=== PATIENT | female | born 1975 | race Caucasian/White ===

== ENCOUNTER 2017-04-28 19:03 | Emergency (ER) | payer MEDICAID ==
[~2017-04-28] VITALS: Ht 157.5 cm; Wt 74.5 kg
[~2017-04-28 19:03] MED LIST: OMEP20CA9 PO; ONDA4TAB35 PO; RANI150T9 PO
[2017-04-28 19:45] VITALS: Ht 157.5 cm; Wt 74.5 kg
[2017-04-28] MEDS ORDERED: TRIAMCINOLONE ACET 40 MG/ML INJ INJ STA (21:54)
[2017-04-28] MEDS ORDERED: IBUPROFEN 600 MG TAB PO ONE (22:00)
[2017-04-29] MEDS ORDERED: IBUP-1542 PO (00:05)
[2017-04-29] MEDS ORDERED: TRAM-40 PO (00:05)
--- NOTE | 2017-04-29 00:08 | ERD ---
ER Documentation Chief Complaint Date/Time DATE: 04/29/17 TIME: 00:06 Chief Complaint L shoulder pain x 3 months HPI This 42-year-old female presents with a 3 month history of left shoulder pain. She denies any history of injury or inciting events patient has fevers,. She has no deficits. She denies additional complaints other than her left shoulder. ROS All systems reviewed and are negative except as per history of present illness. Medications Home Meds Active Scripts Tramadol Hcl* (Ultram*) 50 Mg Tablet, 50 MG PO Q6H Y for PAIN, #20 TAB Prov:JONATHAN DAMON MD 04/29/17 Ibuprofen* (Motrin*) 600 Mg Tab, 600 MG PO Q6, #20 TAB Prov:JONATHAN DAMON MD 04/29/17 Ondansetron Hcl* (Zofran* ODT) 4 mg -ODT Tab.disper, 4 MG PO Q6 Y for NAUSEA AND /OR VOMITING, #10 TAB Prov:GABBI CHENEY PA-C 11/01/15 Ranitidine Hcl* (Zantac*) 150 Mg Tablet, 150 MG PO BID Y for PAIN, #30 TAB Prov:GABBI CHENEY PA-C 11/01/15 Omeprazole* (Prilosec*) 20 Mg Capsule.dr, 20 MG PO BID, #60 CAP Prov:GABBI CHENEY PA-C 11/01/15 Allergies Allergies: Coded Allergies: No Known Allergy (Unverified , 04/28/17) PMhx/Soc Medical and Surgical Hx: pt denies Medical Hx, pt denies Surgical Hx History of Surgery: No Anesthesia Reaction: No Hx Neurological Disorder: No Hx Respiratory Disorders: No Hx Cardiac Disorders: No Hx Psychiatric Problems: No Hx Miscellaneous Medical Probl: No Hx Alcohol Use: No Hx Substance Use: No Hx Tobacco Use: No Physical Exam Vitals Vital Signs Date Time Temp Pulse Resp B/P Pulse Ox O2 Delivery O2 Flow Rate FiO2 04/28/17 19:45 98.1 95 18 111/56 98 Physical Exam Const: [], [id number]. Head: Atraumatic Eyes: Normal Conjunctiva ENT: Normal External Ears, Nose and Mouth. Neck: Full range of motion..~ No meningismus. Resp: Clear to auscultation bilaterally Cardio: Regular rate and rhythm, no murmurs Abd: Soft, non tender, non distended. Normal bowel sounds Skin: No petechiae or rashes Back: No midline or flank tenderness Ext: No cyanosis, or edema or tenderness in left shoulder capsule with a positive impingement signs. There is no deficits appreciated. There is no ischemia, warmth or erythema. Neur: Awake and alert Psych: Normal Mood and Affect Results 24 hrs Current Medications Medications (Trade) Dose Ordered Sig/Noa Route PRN Reason Start Time Stop Time Status Last Admin Dose Admin Ibuprofen (Motrin) 600 mg ONCE ONCE PO 04/28/17 22:00 04/28/17 22:01 DC 04/28/17 22:48 Triamcinolone Acetonide (Kenalog-40) 40 mg ONCE STAT INJ 04/28/17 21:54 04/28/17 21:56 DC Procedures/MDM X-ray left shoulder 3V Interpreted by me: Bones: No fracture Joints: No dislocation Foreign body: None. Impression-normal left shoulder x-ray Patient consented to left shoulder steroid injection for appears to be rotator cuff tendinitis. Patient was advised of risks and benefits including atrophy tendon rupture, infection wishes to proceed. Via sterile technique 20 mg Kenalog, 2 cc Marcaine and 3 cc lidocaine were injected in the left shoulder joint. Tolerated procedure well. Patient was discharged home with prescription ibuprofen and tramadol and instructions for ice and range of motion to prevent stiffness and primary care follow-up and return precautions. Departure Diagnosis: Primary Impression: Shoulder tendinitis Laterality: left Qualified Code: M75.82 - Tendinitis of left shoulder Condition: Stable Patient Instructions: Shoulder Sprain , Tendonitis Additional Instructions: X RAY NORMAL. YANICK FELDMAN. Cheque otro vez con currie doctor primario en el proximo corrales or regresa para mas o nueva simptomas. JONATHAN DAMON MD Apr 29, 2017 00:08
[2017-04-29 00:12] VITALS: BP 124/62; PULSE 75; RESP 18
--- NOTE | 2017-04-29 00:38 | RADRPT ---
PROCEDURE: XR left shoulder. CLINICAL INDICATION: Pain . TECHNIQUE: AP, Internal and external rotation views of the left shoulder were performed. COMPARISON: None. FINDINGS: No fracture or dislocation. The humeral head articulates normally with the glenoid. The acromioclavicular joint is unremarkable . Thoracic structures are unremarkable. No soft tissue or other osseous abnormality.. IMPRESSION: 1. No fracture, dislocation, or soft tissue abnormality. RPTAT:AAJJ Physician Jasen Date Time Electronically viewed and signed by Physician Jasen on 04/29/2017 00:38 SAY/
--- NOTE | 2017-04-29 07:00 | RADRPT ---
PROCEDURE: XR left shoulder. CLINICAL INDICATION: PAIN TECHNIQUE: 3 views of the left shoulder were performed. COMPARISON: None. FINDINGS: No fracture or dislocation is seen. No lytic or blastic bony lesion is seen. No significant degene rative change. No definite soft tissue abnormality. IMPRESSION: No definite acute fracture or dislocation. RPTAT: HLBE Donna Manuel Physician Date Time Electronically viewed and signed by Donna Manuel Physician on 04/29/2017 07:00 STEFAN/
== END 2017-04-29 00:20 | disposition home or self-care (01) ==
LOC: FTE 19:03
DX: M75.82 Other shoulder lesions, left shoulder (principal)
CPT/HCPCS: 73030; Z7502; Z7610

== ENCOUNTER 2017-09-03 22:29 | Inpatient (IN) | END 2017-09-05 16:12 | disposition home or self-care (01) | DRG 390 ==

== ENCOUNTER 2017-09-29 09:30 | Emergency (ER) | END 2017-09-29 14:04 | disposition home or self-care (01) ==

== ENCOUNTER 2017-09-29 19:46 | Emergency (ER) | END 2017-09-30 02:10 | disposition home or self-care (01) ==

== ENCOUNTER 2018-03-08 08:31 | Emergency (ER) | END 2018-03-08 10:35 | disposition home or self-care (01) ==

== ENCOUNTER 2018-09-15 12:16 | Emergency (ER) | payer MEDICAID ==
[~2018-09-15] VITALS: Wt 73.5 kg
[~2018-09-15 12:16] MED LIST changes: +ACET325T33 PO; +ACET500C5 PO; +CIPR500T4 PO; +DIC20 PO; +FAMO-96 PO; +HYDR-4011 PO; +IBUP-1542 PO; +MED4DP PO; +METR500T PO; +NAPR-985 PO; -OMEP20CA9 PO; -ONDA4TAB35 PO; -RANI150T9 PO
[2018-09-15] MEDS ORDERED: ACETAMINOPHEN 500 MG TAB PO STA (15:36)
[2018-09-15] MEDS ORDERED: IBUPROFEN 800 MG TAB PO ONE (16:30)
--- NOTE | 2018-09-15 18:11 | ERD ---
ER Documentation Chief Complaint Chief Complaint L lower back pain, HOOKS x1d; no relief w tylenol. no trauma/ fall HPI 43-year-old female presents to the ED complaining of left lumbar back pain for 1 day. The pain is described as dull, constant, 7/10. She denies any trauma, no distal weakness, numbness or tingling. The patient also reports mild headache, frontal, but no nausea, no blurred vision. No medications taken at this time for pain. She denies fevers, no chills, no rashes. ROS All systems reviewed and are negative except as per history of present illness. Medications Home Meds Active Scripts Hydrocodone/Acetaminophen ([place] 5-325 Tablet) 1 Each Tablet, 1 TAB PO Q6H PRN for PAIN, #7 TAB Prov:SHORTY VILLEGAS PA-C 03/08/18 Naproxen* (Naprosyn*) 500 Mg Tablet, 500 MG PO BID PRN for PAIN AND/OR INFLAMMATION, #30 TAB Prov:SHORTY VILLEGAS PA-C 03/08/18 Methylprednisolone* (Medrol* DOSE PACK) 4 Mg/Dose-Pack Tab.ds.pk, 4 MG PO . DIRECTED, #1 PACKET Prov:SHORTY VILLEGAS PA-C 03/08/18 Dicyclomine HCl (Dicyclomine HCl) 20 Mg Tablet, 1 TAB PO Q6, #20 Prov:FILOMENA BUTTERFIELD NP 09/30/17 Hydrocodone/Acetaminophen ([place] 5-325 Tablet) 1 Each Tablet, 1 TAB PO Q6H PRN f or SEVERE PAIN LEVEL 7-10, #20 TAB Prov:FILOMENA BUTTERFIELD NP 09/30/17 Metronidazole* (Flagyl*) 500 Mg Tablet, 500 MG PO TID for 10 Days, TAB Prov:FILOMENA BUTTERFIELD NP 09/30/17 Ciprofloxacin Hcl* (Ciprofloxacin Hcl*) 500 Mg Tablet, 500 MG PO BID for 10 Days, TAB Prov:FILOMENA BUTTERFIELD NP 09/30/17 Acetaminophen* (Tylophen*) 500 Mg Capsule, 1 CAP PO Q6H PRN for PAIN AND OR ELEVATED TEMP, #20 CAP Prov:FILOMENA BUTTERFIELD NP 09/30/17 Ibuprofen* (Motrin*) 600 Mg Tab, 600 MG PO Q6H PRN for PAIN AND OR ELEVATED TEMP, #30 TAB Prov:FILOMENA BUTTERFIELD ZI Pabon NP 09/30/17 Famotidine* (Pepcid*) 20 Mg Tablet, 20 MG PO BID for 4 Days, #30 TAB Prov:SHORTY VILLEGAS PA-C 09/29/17 Acetaminophen* (Tylenol*) 325 Mg Tablet, 2 TAB PO Q6 PRN for PAIN AND OR ELEVATED TEMP, #20 TAB Prov:SHORTY VILLEGAS PA-C 09/29/17 Allergies Allergies: Coded Allergies: No Known Allergy (Unverified , 04/28/17) PMhx/Soc Medical and Surgical Hx: pt denies Medical Hx, pt denies Surgical Hx History of Surgery: No Anesthesia Reaction: No Hx Neurological Disorder: No Hx Respiratory Disorders: No Hx Cardiac Disorders: No Hx Psychiatric Problems: No Hx Miscellaneous Medical Probl: No Hx Alcohol Use: No Hx Substance Use: No Hx Tobacco Use: No Smoking Status: Never smoker FmHx Family History: No diabetes, No coronary disease Physical Exam Vitals Physical Exam Patient is in no acute distress, vital signs stable. Alert and fully oriented. EYES: PERRLA, EOMI, Sclera and conjunctiva appear normal. EARS: Canals clear, tympanic membranes WNL THROAT: Normal oropharynx. NECK: Supple, No lymphadenopathy. Full ROM without pain or tenderness. HEART: RRR, no rubs, murmurs, clicks or gallops. LUNGS: Clear to auscultation. ABDOMEN: Soft, non-tender without masses or hepatosplenomegaly. EXTREMITIES: No edema bilaterally. BACK: Normal inspection, no deformity, decreased range of motion for lateral rotation and flexion. No vertebral tenderness, bilateral lower muscle spasm. NEURO: Cranial nerves grossly intact, no motor or sensory deficit Results 24 hrs Laboratory Tests Test 09/15/18 15:46 09/15/18 15:53 Urine Color YELLOW Urine Clarity CLEAR Urine pH 5.0 Urine Specific [place] 1.011 Urine Ketones NEGATIVE mg/dL Urine Nitrite NEGATIVE mg/dL Urine Bilirubin NEGATIVE mg/dL Urine Urobilinogen NEGATIVE mg/dL Urine Leukocyte Esterase NEGATIVE Mario/ul Urine Hemoglobin NEGATIVE mg/dL Urine Glucose NEGATIVE mg/dL Urine Total Protein NEGATIVE mg/dl POC Beta HCG, Qualitative NEGATIVE Current Medications Medications Dose Sig/Noa Start Time Status Last (Trade) Ordered Route PRN Stop Time Admin Dose Reason Admin 1,000 mg ONCE STAT 09/15/18 DC 09/15/18 Acetaminophen PO 15:36 15:46 (Tylenol 09/15/18 15:37 Tab) Ibuprofen 800 mg ONCE ONCE 09/15/18 DC 09/15/18 (Motrin) PO 16:30 16:08 09/15/18 16:31 Procedures/MDM Differential diagnosis include but not limited to: lumbar sprain/strain, sciati ca, herniated disk, UTI less likely pyelo, kidney stone. Neurovascular exam grossly intact. no clinical findings suggestive of acute infectious process, no acute deformity, no edema, no rashes. Physical examination and clinical presentation consistent most likely with acute musculoskeletal back pain. During the ED course the patient received treatment with ibuprofen and Tylenol presenting overall improvement of the symptoms. Results and clinical impression discussed with the patient who agrees with management. The patient is stable to be treated outpatient and will be discharged home with recommendations and close monitoring The patient was instructed to follow up with the primary care provider in the next 48h. If symptoms persist, worsen or new symptoms develop, then patient should return to the ED immediately. Instructions explained and given to patient with acknowledgment and demonstrated understanding. Disclaimer: Inadvertent spelling and grammatical errors are likely due to EHR/dictation software use and do not reflect on the overall quality of patient care. Also, please note that the electronic time recorded on this note does not necessarily reflect the actual time of the patient encounter. Departure Diagnosis: Primary Impression: Back pain Condition: Stable Patient Instructions: Back Pain (Acute Or Chronic) Additional Instructions: Muchas frankie por [facility] para currie servicio. Esperamos que en currie visita a la isaiah de emergencia currie problema medico haya sido solucionado y que se sienta mucho mejor. Para estar seguros que currie mejoria sigue en proceso, le pedimos el favor de hacer clyde heidi de seguimiento medico con currie doctor primario en los proximos 2-4 corrales. Lleve con usted estos documentos y las medicinas recetadas. Si vick sintomas empeoran, NO SE ESPERE, por favor regrese a isaiah de emergencia INMEDIATAMENTE. En cherrie que usted no tenga un mdico de atencin primaria: Llame al mdico o clnica comunitaria de referencia que aparece abajo neal las horas de consultorio para hacer clyde heidi para que le vean. CLINICAS: [facility] [phone] [facility] [phone] [facility] [phone] [facility] [phone] [facility] [facility] [phone] [facility] [phone] MARCELINA POOLE PA-C Sep 15, 2018 18:11 SHARON COVARRUBIAS MD Sep 24, 2018 15:01
[2018-09-15 18:41] VITALS: BP 100/59; PULSE 75; RESP 18
== END 2018-09-15 18:42 | disposition home or self-care (01) ==
LOC: FTE 12:16
DX: M54.5 Low back pain (principal)
CPT/HCPCS: 74176; 81003; 81025; Z7502; Z7610

== ENCOUNTER 2018-10-03 12:42 | Emergency (ER) | payer MEDICAID ==
[~2018-10-03] VITALS: Ht 152.4 cm; Wt 73.8 kg
[2018-10-03 12:52] VITALS: BP 114/61; PULSE 89; RESP 18; Ht 152.4 cm; Wt 73.8 kg
[2018-10-03] MEDS ORDERED: morphine 4 MG/ML VIAL IV STA (14:12)
[2018-10-03] MEDS ORDERED: SOD CHLORIDE 0.9% 1,000 ML IV STA (14:12)
[2018-10-03] MEDS ORDERED: ONDANSETRON 4 MG INJ IV STA (14:12)
[2018-10-03] MEDS ORDERED: IBUP800T48 PO (16:37)
[2018-10-03] MEDS ORDERED: HYDR-4011 PO (16:37)
[2018-10-03] MEDS ORDERED: NITR-58 PO (16:38)
--- NOTE | 2018-10-03 16:41 | ERD ---
ER Documentation Chief Complaint Chief Complaint VAGINAL BLEEDING X 5 DAYS HPI 43-year-old female is here with pelvic pain or vaginal bleeding for the past 5 days but the pain got worse today. Denies possibility of . No vo miting. No dysuria hematuria frequency. ROS All systems reviewed and are negative except as per history of present illness. Medications Home Meds Active Scripts Nitrofurantoin Monohyd Macrocr* (Macrobid*) 100 Mg Capsr, 100 MG PO BID for 7 Days, CAP Prov:KERRIE BAE PA-C 10/03/18 Hydrocodone/Acetaminophen ([place] 5-325 Tablet) 1 Each Tablet, 1 TAB PO Q6H PRN for PAIN, #15 TAB Prov:KERRIE BAE PA-C 10/03/18 Ibuprofen* (Motrin*) 800 Mg Tab, 800 MG PO Q6, #30 TAB Prov:KERRIE BAE PA-C 10/03/18 Hydrocodone/Acetaminophen ([place] 5-325 Tablet) 1 Each Tablet, 1 TAB PO Q6H PRN for PAIN, #7 TAB Prov:SHORTY VILLEGAS PA-C 03/08/18 Naproxen* (Naprosyn*) 500 Mg Tablet, 500 MG PO BID PRN for PAIN AND/OR INFLAMMATION, #30 TAB Prov:SHORTY VILLEGAS PA-C 03/08/18 Methylprednisolone* (Medrol* DOSE PACK) 4 Mg/Dose-Pack Tab.ds.pk, 4 MG PO . DIRECTED, #1 PACKET Prov:SHORTY VILLEGAS PA-C 03/08/18 Dicyclomine HCl (Dicyclomine HCl) 20 Mg Tablet, 1 TAB PO Q6, #20 Prov:FILOMENA BUTTERFIELD NP 09/30/17 Hydrocodone/Acetaminophen ([place] 5-325 Tablet) 1 Each Tablet, 1 TAB PO Q6H PRN for SEVERE PAIN LEVEL 7-10, #20 TAB Prov:FILOMENA BUTTERFIELD NP 09/30/17 Metronidazole* (Flagyl*) 500 Mg Tablet, 500 MG PO TID for 10 Days, TAB Prov:FILOMENA BUTTERFIELD NP 09/30/17 Ciprofloxacin Hcl* (Ciprofloxacin Hcl*) 500 Mg Tablet, 500 MG PO BID for 10 Days, TAB Prov:FILOMENA BUTTERFIELD NP 09/30/17 Acetaminophen* (Tylophen*) 500 Mg Capsule, 1 CAP PO Q6H PRN for PAIN AND OR ELEVATED TEMP, #20 CAP Prov:FILOMENA BUTTERFIELD NP 09/30/17 Ibuprofen* (Motrin*) 600 Mg Tab, 600 MG PO Q6H PRN for PAIN AND OR ELEVATED TEMP, #30 TAB Prov:FILOMENA BUTTERFIELD NP 09/30/17 Famotidine* (Pepcid*) 20 Mg Tablet, 20 MG PO BID for 4 Days, #30 TAB Prov:SHORTY VILLEGAS PA-C 09/29/17 Acetaminophen* (Tylenol*) 325 Mg Tablet, 2 TAB PO Q6 PRN for PAIN AND OR ELEVATED TEMP, #20 TAB Prov:SHORTY VILLEGAS PA-C 09/29/17 Allergies Allergies: Coded Allergies: No Known Allergy (Unverified , 04/28/17) PMhx/Soc Medical and Surgical Hx: pt denies Medical Hx, pt denies Surgical Hx History of Surgery: No Anesthesia Reaction: No Hx Neurological Disorder: No Hx Respiratory Disorders: No Hx Cardiac Disorders: No Hx Psychiatric Problems: No Hx Miscellaneous Medical Probl: No Hx Alcohol Use: No Hx Substance Use: No Hx Tobacco Use: No Smoking Status: Never smoker FmHx Family History: No diabetes Physical Exam Vitals Vital Signs Date Temp Pulse Resp B/P (MAP) Pulse Ox O2 O2 Flow FiO2 Time Delivery Rate 10/03/18 98.8 89 18 114/61 100 12:52 (78) Physical Exam INITIAL VITAL SIGNS: Reviewed by me GENERAL: Awake, alert and oriented x 4, well appearing, nontoxic, speaking in full sentences. No acute distress HEAD: Atraumatic NECK: Supple. No masses. Full range of motion. No meningismus. No midline tenderness. EYES: EOMI. PERRL. RESPIRATORY: Clear to auscultation bilaterally. Symmetric chest wall rise. No wheezing or rales. No accessory muscle use. CV: Regular rate and rhythm. No murmurs, rubs, or gallops. ABDOMEN: Soft, non-distended. Nontender. Negative [place]. Negative McBurneys point tenderness. No CVA tenderness bilaterally. No guarding. No rebound. Result Diagram: 10/03/18 1450 10/03/18 1450 Results 24 hrs Laboratory Tests Test 10/03/18 14:50 10/03/18 15:03 White Blood Count 7.0 10^3/ul Red Blood Count 5.04 10^6/ul Hemoglobin 13.9 g/dl Hematocrit 44.0 % Mean Corpuscular Volume 87.3 fl Mean Corpuscular Hemoglobin 27.6 pg Mean Corpuscular Hemoglobin Concent 31.6 g/dl Red Cell Distribution Width 14.1 % Platelet Count 342 10^3/UL Mean Platelet Volume 9.4 fl Immature Granulocytes % 0.300 % Neutrophils % 53.1 % Lymphocytes % 34.6 % Monocytes % 9.9 % Eosinophils % 1.4 % Basophils % 0.7 % Nucleated Red Blood Cells % 0.0 /100WBC Immature Granulocytes # 0.020 10^3/ul Neutrophils # 3.7 10^3/ul Lymphocytes # 2.4 10^3/ul Monocytes # 0.7 10^3/ul Eosinophils # 0.1 10^3/ul Basophils # 0.1 10^3/ul Nucleated Red Blood Cells # 0.0 10^3/ul Urine Color RED Urine Clarity CLOUDY Urine pH 6.0 Urine Specific [place] 1.018 Urine Ketones NEGATIVE mg/dL Urine Nitrite NEGATIVE mg/dL Urine Bilirubin NEGATIVE mg/dL Urine Urobilinogen NEGATIVE mg/dL Urine Leukocyte Esterase TRACE Mario/ul Urine Microscopic RBC > 182 /HPF Urine Microscopic WBC > 182 /HPF Urine Squamous Epithelial Cells MODERATE /HPF Urine Bacteria FEW /HPF Urine Hemoglobin 3+ mg/dL Urine Glucose 1+ mg/dL Urine Total Protein 2+ mg/dl Sodium Level 142 mmol/L Potassium Level 4.2 mmol/L Chloride Level 108 mmol/L Carbon Dioxide Level 23 mmol/L Anion Gap 11 Blood Urea Nitrogen 19 mg/dl Creatinine 0.73 mg/dl Est Glomerular Filtrat Rate mL/min > 60 mL/min Glucose Level 96 mg/dl Calcium Level 9.2 mg/dl Total Bilirubin 0.3 mg/dl Direct Bilirubin 0.00 mg/dl Indirect Bilirubin 0.3 mg/dl Aspartate Amino Transf (AST/SGOT) 23 IU/L Alanine Aminotransferase (ALT/SGPT) 25 IU/L Alkaline Phosphatase 64 IU/L Total Protein 7.8 g/dl Albumin 4.2 g/dl Globulin 3.60 g/dl Albumin/Globulin Ratio 1.16 Lipase 77 U/L POC Beta HCG, Qualitative NEGATIVE Current Medications Medications Dose Sig/Noa Start Time Status Last (Trade) Ordered Route PRN Stop Time Admin Dose Reason Admin Sodium 1,000 ml @ Q1H STAT 10/03/18 DC 10/03/18 Chloride 1,000 mls/hr IV 14:12 14:52 10/03/18 15:11 Morphine 4 mg ONCE STAT 10/03/18 DC 10/03/18 Sulfate IV 14:12 14:52 (morphine) 10/03/18 14:14 Ondansetron 4 mg ONCE STAT 10/03/18 DC 10/03/18 HCl (Zofran IV 14:12 14:52 Inj) 10/03/18 14:14 Procedures/MDM Patient presents with dysfunctional uterine bleeding. Ultrasound is negative. She is hemodynamically stable. No evidence of anemia. Possible urinary tract infections which will be treated with antibiotics as well as prescription for pain medication. Patient counseled regarding my diagnostic impression and care plan. Prior to discharge all questions answered. Pt agrees with treatment plan and understands strict return precautions. Pt is instructed to follow up with primary care provider within 24-48 hours. Precautionary instructions provided including instructions to return to the ER if not improving or for any worsening or changing symptoms or concerns. Departure Diagnosis: Primary Impression: Dysfunctional uterine bleeding Condition: Stable Patient Instructions: Dysfunctional Uterine Bleeding, Pelvic Pain, Unknown Cause Additional Instructions: Llame al doctor MAANA y bucky clyde RIANNA PARA DENTRO DE 1-2 ARENAS.Dgale a la secretaria que nosotros le instruimos hacer esta rianna.Avise o llame si currie condicin se empeora antes de la rianna. Regresa aqui si peor o no mejor. KERRIE BAE PA-C Oct 03, 2018 16:41
== END 2018-10-03 16:47 | disposition home or self-care (01) ==
LOC: FTE 12:42
DX: N93.9 Abnormal uterine and vaginal bleeding, unspecified (principal); R10.2 Pelvic and perineal pain
CPT/HCPCS: 36415; 76856; 80053; 81001; 81025; 83690; 85025; 96374; 96375; J2270; J2405; J7030; Z7502

== ENCOUNTER 2019-03-02 11:40 | Emergency (ER) | payer MEDICAID ==
[~2019-03-02] VITALS: Ht 160 cm; Wt 74.2 kg
[~2019-03-02 11:40] MED LIST changes: +CYCL10TA7 PO; +IBUP800T48 PO; +NITR-58 PO
[2019-03-02 11:44] VITALS: BP 122/54; PULSE 74; RESP 18; Ht 160 cm; Wt 74.2 kg
[2019-03-02] MEDS ORDERED: KETOROLAC 60 MG INJ IM STA (11:59)
--- NOTE | 2019-03-02 12:10 | ERD ---
ER Documentation Chief Complaint Chief Complaint RIGHT ARM PAIN FOR 2 WEEKS; CMS INTACT HPI This is a 44-year-old female who presents with right upper extremity pain. Starts in the right side of her shoulder and neck and radiates to her right fingers. It is associated with paresthesias in her fingers. She denies any injury or trauma. No chest pain palpitations or shortness of breath. She is tried different creams and Motrin but it has not helped. She states the pain is severe and makes it difficult for her to sleep at night. ROS All systems reviewed and are negative except as per history of present illness. Medications Home Meds Active Scripts Methylprednisolone* (Medrol* DOSE PACK) 4 Mg/Dose-Pack Tab.ds.pk, 4 MG PO . DIRECTED for 5 Days, PACKET Prov:KERRIE BAE PA-C 03/02/19 Hydrocodone/Acetaminophen ([place] 5-325 Tablet) 1 Each Tablet, 1 TAB PO Q6H PRN for PAIN, #15 TAB Prov:KERRIE BAE PA-C 03/02/19 Ibuprofen* (Motrin*) 800 Mg Tab, 800 MG PO Q6, #30 TAB Prov:KERRIE BAE PA-C 03/02/19 Cyclobenzaprine Hcl* (Cyclobenzaprine Hcl*) 10 Mg Tablet, 10 MG PO BID, #15 TAB Prov:KERRIE BAE PA-C 03/02/19 Nitrofurantoin Monohyd Macrocr* (Macrobid*) 100 Mg Capsr, 100 MG PO BID for 7 Days, CAP Prov:KERRIE BAE PA-C 10/03/18 Hydrocodone/Acetaminophen ([place] 5-325 Tablet) 1 Each Tablet, 1 TAB PO Q6H PRN for PAIN, #15 TAB Prov:KERRIE BAE PA-C 10/03/18 Ibuprofen* (Motrin*) 800 Mg Tab, 800 MG PO Q6, #30 TAB Prov:KERRIE BAE PA-C 10/03/18 Hydrocodone/Acetaminophen ([place] 5-325 Tablet) 1 Each Tablet, 1 TAB PO Q6H PRN for PAIN, #7 TAB Prov:SHORTY VILLEGAS PA-C 03/08/18 Naproxen* (Naprosyn*) 500 Mg Tablet, 500 MG PO BID PRN for PAIN AND/OR INFLAMMATION, #30 TAB Prov:SHORTY VILLEGAS PA-C 03/08/18 Methylprednisolone* (Medrol* DOSE PACK) 4 Mg/Dose-Pack Tab.ds.pk, 4 MG PO . DIRECTED, #1 PACKET Prov:SHORTY VILLEGAS PA-C 03/08/18 Dicyclomine HCl (Dicyclomine HCl) 20 Mg Tablet, 1 TAB PO Q6, #20 Prov:FILOMENA BUTTERFIELD NP 09/30/17 Hydrocodone/Acetaminophen ([place] 5-325 Tablet) 1 Each Tablet, 1 TAB PO Q6H PRN for SEVERE PAIN LEVEL 7-10, #20 TAB Prov:FILOMENA BUTTERFIELD SKID ADZER 09/30/17 Metronidazole* (Flagyl*) 500 Mg Tablet, 500 MG PO TID for 10 Days, TAB Prov:FILOMENA BUTTERFIELD SKID ADZER 09/30/17 Ciprofloxacin Hcl* (Ciprofloxacin Hcl*) 500 Mg Tablet, 500 MG PO BID for 10 Days, TAB Prov:FILOMENA BUTTERFIELD NP 09/30/17 Acetaminophen* (Tylophen*) 500 Mg Capsule, 1 CAP PO Q6H PRN for PAIN AND OR ELEVATED TEMP, #20 CAP Prov:FILOMENA BUTTEFRIELD SKID ADZER 09/30/17 Ibuprofen* (Motrin*) 600 Mg Tab, 600 MG PO Q6H PRN for PAIN AND OR ELEVATED TEMP, #30 TAB Prov:FILOMENA BUTTERFIELD SKID ADZER 09/30/17 Famotidine* (Pepcid*) 20 Mg Tablet, 20 MG PO BID for 4 Days, #30 TAB Prov:SHORTY VILLEGAS PA-C 09/29/17 Acetaminophen* (Tylenol*) 325 Mg Tablet, 2 TAB PO Q6 PRN for PAIN AND OR ELEVATED TEMP, #20 TAB Prov:SHORTY VILLEGAS PA-C 09/29/17 Allergies Allergies: Coded Allergies: No Known Allergy (Unverified , 04/28/17) PMhx/Soc Medical and Surgical Hx: pt denies Medical Hx, pt denies Surgical Hx History of Surgery: No Anesthesia Reaction: No Hx Neurological Disorder: No Hx Respiratory Disorders: No Hx Cardiac Disorders: No Hx Psychiatric Problems: No Hx Miscellaneous Medical Probl: No Hx Alcohol Use: No Hx Substance Use: No Hx Tobacco Use: No Smoking Status: Never smoker FmHx Family History: No diabetes Physical Exam Vitals Vital Signs Date Temp Pulse Resp B/P (MAP) Pulse Ox O2 O2 Flow FiO2 Time Delivery Rate 03/02/19 98.4 74 18 122/54 99 11:44 (76) Physical Exam Const: No acute distress Head: Atraumatic Eyes: Normal Conjunctiva ENT: Normal External Ears, Nose and Mouth. Neck: Full range of motion. No meningismus. Resp: Clear to auscultation bilaterally Cardio: Regular rate and rhythm, no murmurs Upper Extremity -right Skin: No laceration, or evidence of external trauma Compartments: Soft Motor: Full active range of motion shoulder/elbow/wrist/hand Sensation: Intact shoulder/pinky/middle finger/thumb web space Bones: Nontender humerus/elbow/forearm/wrist/hand Snuffbox: Nontender Joints: No effusion Pulses/Perfusion: 2+ radial, Capillary refill < 2 seconds Results 24 hrs Current Medications Medications Dose Sig/Noa Start Time Status Last (Trade) Ordered Route PRN Stop Time Admin Dose Reason Admin Ketorolac 60 mg ONCE STAT 03/02/19 DC Tromethamine IM 11:59 03/02/19 (Toradol) 12:00 Procedures/MDM Patient has right upper extremity pain and paresthesias. Likely cervical radiculopathy. She is neurovascular intact. She was given Toradol here and discharged with prescription for ibuprofen, cyclobenzaprine, [place], and Medrol Dosepak. Patient counseled regarding my diagnostic impression and care plan. Prior to discharge all questions answered. Pt agrees with treatment plan and understands strict return precautions. Pt is instructed to follow up with primary care provider within 24-48 hours. Precautionary instructions provided including instructions to return to the ER if not improving or for any worsening or changing symptoms or concerns. Departure Diagnosis: Primary Impression: Cervical radiculopathy Condition: Stable Patient Instructions: Radiculopathy, Cervical Additional Instructions: Llame al doctor DOMI y bucky clyde RIANNA PARA DENTRO DE 1-2 ARENAS.Dgale a la secretaria que nosotros le instruimos hacer esta rianna.Avise o llame si currie condicin se empeora antes de la rianna. Regresa aqui si peor o no mejor. KERRIE BAE PA-C Mar 02, 2019 12:10
== END 2019-03-02 12:44 | disposition home or self-care (01) ==
LOC: FTE 11:40
DX: M54.12 Radiculopathy, cervical region (principal)
CPT/HCPCS: 81025; 96372; J1885; Z7502